=== PATIENT | male | born 1990 | race Caucasian/White ===

== ENCOUNTER 2021-02-13 13:29 | Emergency (ER) | payer BC ==
[2021-02-13] MEDS ORDERED: SODIUM CHLORIDE 0.9% 1,000 ML IV ONE (15:21)
[2021-02-13] MEDS ORDERED: ACETAMINOPHEN TAB 325 MG TAB PO STA (15:21)
--- NOTE | 2021-02-13 15:21 | ED ---
General Adult HPI - General Chief complaint: Recheck/Abnormal Lab/Rx Stated complaint: Covid Exposure, Wants infusion Source: patient Mode of arrival: ambulatory Limitations: no limitations - History of Present Illness Initial comments: Dandy morbidly obese 30-year-old male who presents to the ER today via private vehicle for treatment of COVID-19. Patient reports he's had symptoms since Thursday, his is been symptomatic since Thursday and is being hospitalized. Patient would like treatment with monoclonal antibody therapy. Patient is not vaccinated. Patient complains of intermittent fevers, chills, fatigue and exertional shortness of breath. No chest pain. - Related Data Allergies Allergy/AdvReac Type Severity Reaction Status Date / Time No Known Allergies Allergy Verified 02/13/21 13:56 Review of Systems ROS Statement: Those systems with pertinent positive or pertinent negative responses have been documented in the HPI. ROS Other: All systems not noted in ROS Statement are negative. Past Medical History Past Medical History: No Reported History History of Any Multi-Drug Resistant Organisms: None Reported Past Surgical History: No Surgical Hx Reported Past Psychological History: No Psychological Hx Reported Smoking Status: Never smoker Past Alcohol Use History: None Reported Past Drug Use History: None Reported General Exam - General Exam Comments Initial Comments: Physical Exam GENERAL: Patient is well-developed and well-nourished. Patient is nontoxic and well-hydrated and is in no distress. Morbidly obese BMI>50 HENT: Normocephalic, Atraumatic. EYES: PERRL, EOMI PULMONARY: Unlabored respirations. CARDIOVASCULAR: RRR Warm and well perfused extremities ABDOMEN: Non-distended SKIN: No rashes or bruising : Deferred NEUROLOGIC: Alert and oriented Normal speech Normal gait MUSCULOSKELETAL: Moving all extremities with no apparent injury PSYCHIATRIC: No SI/HI Limitations: no limitations Course Vital Signs 02/13/21 02/13/21 13:56 16:26 Temperature 99.9 F H Pulse Rate 116 H Respiratory 18 16 Rate Blood Pressure 176/93 O2 Sat by Pulse 93 L Oximetry Medical Decision Making - Medical Decision Making Patient was seen and evaluated history is obtained from patient, patient was febrile and tachycardic on arrival he was given antipyretics and IV fluids. He reported feeling better upon my evaluation. He received monoclonal antibodies. Patient did not have any reaction the monoclonal antibodies he was observed for one hour without reaction. Patient was advised on supportive care for COVID-19 and close return parameters patient was discharged home in stable condition - Lab Data Lab Results 02/13/21 Range/Units 14:00 Coronavirus (PCR) Detected A (Not Detectd) Disposition Clinical Impression: COVID Disposition: HOME SELF-CARE Condition: Stable Additional Instructions: Take supplements including vitamin C, vitamin D and Zinc Drink plenty of fluids to stay hydrated Treat your fever with Tylenol and Motrin Monitor your oxygen saturation and heart rate, return to the emergency department if your oxygens remains below 90% heart rate remains over 110 at rest Is patient prescribed a controlled substance at d/c from ED?: No Referrals: Claritza Silva MD [Primary Care Provider] - 1-2 days
[2021-02-13] MEDS ORDERED: SODIUM CHLORIDE 0.9% 50 ML IVPB ONE (16:00)
[2021-02-13] MEDS ORDERED: BAMLANIVIMAB (EUA) 700 MG, ETESEVIMAB (EUA) 1,400 MG in SODIUM CHLORIDE 0.9% 100 ML IVPB ONE (16:00)
[2021-02-13 17:53] VITALS: BP 135/82; PULSE 103; RESP 18; TEMP 100.2
== END 2021-02-13 17:52 | disposition home or self-care (01) ==
LOC: EC 13:29
DX: U07.1 COVID-19 (principal)
CPT/HCPCS: 87635; 99284; 96360; J3490

== ENCOUNTER → 2021-03-08 | Outpatient (CLI) | payer BC ==
[2021-03-08 14:31] LABS: Basophils # (A) 0.02 X 10*3/uL (0.00-0.10); Basophils % (A) 0.3 %; Eosinophils # (A) 0.29 X 10*3/uL (0.04-0.35); Eosinophils % (A) 3.8 %; HGB 13.7 g/dL (13.0-17.0); Lymphocytes # (A) 1.28 X 10*3/uL (0.90-5.00); Lymphocytes % (A) 16.9 %; MCH 27.4 pg (27.0-32.0); MCHC 31.1 g/dL (32.0-37.0); Mean Platelet Volume 10.3 fL (9.5-12.2); Monocytes # (A) 0.71 X 10*3/uL (0.20-1.00); Monocytes % (A) 9.4 %; Neutrophils # (A) 5.17 X 10*3/uL (1.80-7.70); Neutrophils % (A) 68.3 %; Platelet Count 247 X 10*3/uL (140-440); RDW 15.7 % (11.5-14.5); WBC 7.57 X 10*3/uL (4.50-10.00)
[2021-03-08 17:25] LABS: ALT 33 U/L (10-49); AST 20 U/L (14-35); African American GFR (CKD) 87.1 (60.0-200.0); Albumin 3.9 g/dL (3.8-4.9); Albumin/Globulin Ratio 1.35 (1.60-3.17); Alkaline Phosphatase 79 U/L (41-126); BUN/Creat Ratio 23.44 Ratio (12.00-20.00); Calcium 9.2 mg/dL (8.7-10.3); Carbon Dioxide 20.7 mmol/L (20.0-27.5); Chloride 107 mmol/L (96-109); Chol/HDL Ratio 4.04 Ratio; Globulin 2.9 g/dL (1.6-3.3); Glucose 92 mg/dL (70-110); LDL Cholesterol,Calculated 121.8 mg/dL (0.0-131.0); Non-African American GFR(CKD) 75.1 (60.0-200.0); Potassium 4.5 mmol/L (3.5-5.5); Sodium 141 mmol/L (135-145); Total Protein 6.8 g/dL (6.2-8.2)
== END | disposition home or self-care (01) ==
LOC: LABWHC1 08:59
PROVIDERS: ATTEND Physician Assistant Medical
DX: Z00.01 Encounter for general adult medical examination with abnormal findings (principal); E66.01 Morbid (severe) obesity due to excess calories; I10 Essential (primary) hypertension; R04.0 Epistaxis; R53.83 Other fatigue; Z86.16 Personal history of COVID-19
CPT/HCPCS: 36415; 80053; 80061; 82306; 82607; 83036; 84443; 85025; 85379

== ENCOUNTER 2021-03-18 23:06 | Emergency (ER) | payer BC ==
[2021-03-18 23:20] VITALS: TEMP 98.4
[2021-03-19 00:23] VITALS: RESP 18
--- NOTE | 2021-03-19 01:40 | US ---
EXAMINATION TYPE: US venous doppler duplex LE LT DATE OF EXAM: 03/19/2021 12:53 AM COMPARISON: NONE CLINICAL HISTORY: L calf tender. No hx of DVT. Patient does not take blood thinners. Left calf tender . SIDE PERFORMED: Left TECHNIQUE: The lower extremity deep venous system is examined utilizing real time linear array sonog jace with graded compression, doppler sonography and color-flow sonography. VESSELS IMAGED: Common Femoral Vein Deep Femoral Vein Greater Saphenous Vein * Femoral Vein Popliteal Vein Small Saphenous Vein * Proximal Calf Veins (* superficial vessels) *Exam technically difficult due to patient body habitus and edema. Pt 450 lbs. Left Leg: Difficulty visualizing upper CFV and DFV clearly. Color flow shown in all veins imaged at this time. Unable to see distal femoral vein in transverse compression views. IMPRESSION: Slightly limited exam. No evidence of deep vein thrombosis.
--- NOTE | 2021-03-19 01:59 | ED ---
General Adult HPI - General Chief complaint: Upper Respiratory Infection Stated complaint: recheck, sent by Time Seen by Provider: 03/18/21 23:59 Source: patient, family Mode of arrival: ambulatory Limitations: no limitations - History of Present Illness Initial comments: This patient is a 31-year-old man who presents to have evaluation related to CT results from earlier today. The patient had a follow-up appointment related to cold infection. He states that he was diagnosed with coated in January. He states that he is continuing to have some dyspnea mainly with exertion. He was seen in the clinic where he had a d-dimer that was positive he therefore followed up for computed tomography scan with contrast. They received a call that he had some bilateral pneumonia/pneumonitis and it was recommended that he be evaluated. The patient also stated that he had some left leg pains in the calf area earlier. -: days(s) Location: chest, left, lower extremity Severity scale (1-10): 0 Consistency: constant Improves with: none Worsens with: none Associated Symptoms: cough, shortness of breath (With exertion) - Related Data Previous Rx's Medication Instructions Recorded Azithromycin [Zithromax Z-pack (6 250 mg PO DIRECTED #6 tab 03/19/21 tabs)] Dexamethasone [Decadron] 6 mg PO DAILY #7 tablet 03/19/21 Allergies Allergy/AdvReac Type Severity Reaction Status Date / Time No Known Allergies Allergy Verified 03/18/21 23:20 Review of Systems ROS Statement: Those systems with pertinent positive or pertinent negative responses have been documented in the HPI. ROS Other: All systems not noted in ROS Statement are negative. Constitutional: Denies: fever, chills Respiratory: Reports: cough. Denies: dyspnea, wheezes, hemoptysis Cardiovascular: Reports: dyspnea on exertion. Denies: chest pain, palpitations, orthopnea, edema, syncope Gastrointestinal: Denies: abdominal pain, vomiting, diarrhea Musculoskeletal: Denies: back pain Skin: Denies: rash Neurological: Denies: headache, weakness Past Medical History Past Medical History: Hypertension Additional Past Medical History / Comment(s): scoliosis, gout History of Any Multi-Drug Resistant Organisms: None Reported Past Surgical History: No Surgical Hx Reported Past Psychological History: No Psychological Hx Reported Smoking Status: Never smoker Past Alcohol Use History: None Reported Past Drug Use History: None Reported General Exam Limitations: no limitations General appearance: alert, in no apparent distress Head exam: Present: atraumatic, normocephalic Eye exam: Present: normal appearance Respiratory exam: Present: normal lung sounds bilaterally. Absent: respiratory distress, wheezes, rales, rhonchi, stridor, accessory muscle use, decreased breath sounds Cardiovascular Exam: Present: regular rate, normal rhythm, normal heart sounds. Absent: systolic murmur, diastolic murmur, rubs, gallop GI/Abdominal exam: Present: soft. Absent: tenderness, guarding, rebound Extremities exam: Present: normal inspection, normal capillary refill. Absent: tenderness, pedal edema, calf tenderness Back exam: Present: normal inspection Neurological exam: Present: alert Skin exam: Present: warm, dry, intact, normal color. Absent: rash Course Vital Signs 03/18/21 03/19/21 23:16 00:15 Temperature 98.4 F Pulse Rate 97 92 Respiratory 22 18 Rate Blood Pressure 150/97 143/107 O2 Sat by Pulse 97 97 Oximetry Medical Decision Making - Medical Decision Making Patient is 31-year-old man who is having some exertional dyspnea following ovoid infection. I did review the computed tomography scan that was performed as outpatient and it is read as showing a little bit of bilateral interstitial pneumonia. Given this will try the patient course of azithromycin though suspect that this is also Kwell of elevated infection. Discussed follow with pu lmonology as well as return parameters. Disposition Clinical Impression: Pneumonia due to 2019 novel coronavirus Disposition: HOME SELF-CARE Condition: Good Instructions (If sedation given, give patient instructions): Coronavirus Disease 2019 (COVID-19) Prescriptions: Dexamethasone [Decadron] 6 mg PO DAILY #7 tablet Azithromycin [Zithromax Z-pack (6 tabs)] 250 mg PO DIRECTED #6 tab Is patient prescribed a controlled substance at d/c from ED?: No Referrals: Dorothy San MD [Primary Care Provider] - 1-2 days Papo Wakefield MD [STAFF PHYSICIAN] - 1-2 days
[2021-03-19 02:27] VITALS: BP 143/99; PULSE 87
== END 2021-03-19 02:27 | disposition home or self-care (01) ==
LOC: EC 23:06
DX: U07.1 COVID-19 (principal); J12.82 Pneumonia due to coronavirus disease 2019; I10 Essential (primary) hypertension
CPT/HCPCS: 99285

== ENCOUNTER → 2021-03-18 | Outpatient (CLI) | payer BC ==
--- NOTE | 2021-03-18 17:38 | CT ---
EXAMINATION TYPE: CT angio chest DATE OF EXAM: 03/18/2021 COMPARISON: None HISTORY: SOB, h/o covid, elevated d-dimer CT DLP: 1984.1 mGycm Automated exposure control for dose reduction was used. CONTRAST: Performed with IV Contrast, patient injected with 200 mL of Isovue 370. Images obtained from the thoracic inlet to the diaphragm with IV contrast. There are Three-D postproc essed images. There is groundglass interstitial patchy infiltrate throughout the lungs. There is no mediastinal alireza nopathy. There are no hilar masses. Heart size is fairly normal. There is no pericardial effusion. There is suboptimal contrast density in the pulmonary arteries. I see no filling defect. There is shweta e mild spurring in the thoracic spine. Sternum is intact. Thoracic aorta is intact. There is no aneur ysm or dissection. IMPRESSION: No evidence of pulmonary embolism. Suboptimal exam. Patchy bilateral groundglass pulmonary interstitial infiltrates consistent with multifocal interstiti al pneumonia.
== END | disposition home or self-care (01) ==
LOC: RADCTMAIN 16:12
PROVIDERS: ATTEND Family Medicine
DX: R91.8 Other nonspecific abnormal finding of lung field (principal); Z86.16 Personal history of COVID-19
CPT/HCPCS: 71275; Q9967